=== PATIENT | male | born 1930 | race Caucasian/White ===

== ENCOUNTER 2017-07-25 07:13 | Emergency (ER) | payer OTHER ==
[~2017-07-25] VITALS: Ht 177.8 cm; Wt 77.1 kg
[~2017-07-25 07:13] MED LIST: CARBIDOPA-LEVO1 EAC6; CEFDINIR300 MG PO; CLONAZEPAM 1 MG1 M1; FLOMAX0.4 MG PO; GABAPENTIN 100100 MG PO; NABUMETONE 500500 M1; SERTRALINE HCL100 MG; SIMVASTATIN40 MG; WELLBUTRIN 75 M75 M1; WELLBUTRIN XL150 MG PO
== END 2017-07-25 08:22 | disposition home or self-care (01) ==
LOC: ER 07:13
DX: T83.098A Other mechanical complication of other urinary catheter, initial encounter (principal); F41.9 Anxiety disorder, unspecified; F32.9 Major depressive disorder, single episode, unspecified; F10.99 Alcohol use, unspecified with unspecified alcohol-induced disorder; Z98.890 Other specified postprocedural states; Z87.891 Personal history of nicotine dependence

== ENCOUNTER 2017-12-08 21:20 | Inpatient (IN) | payer OTHER ==
[~2017-12-08] VITALS: Ht 177.8 cm; Wt 71.2 kg
[2017-12-08 21:42] VITALS: BP 189/91
[2017-12-08 22:13] LABS: URINE BILIRUBIN NEGATIVE (Negative); URINE BLOOD 3+ (Negative); URINE CLARITY TURBID; URINE COLOR YELLOW; URINE GLUCOSE-RANDOM* NEGATIVE (Negative); URINE KETONES NEGATIVE (Negative); URINE PROTEIN (DIPSTICK) 3+ (Negative); URINE UROBILINOGEN 0.2 E.U./dl (0.2-1.0)
[2017-12-08 22:15] LABS: ABSOLUTE NEUTROPHILS 8.8 thou/uL (1.4-8.2); BASOPHILS 0.5 % (0.0-2.0); EOSINOPHILS 0.3 % (0.0-3.0); HEMATOCRIT 38.2 % (42.0-52.0); HEMOGLOBIN 13.2 gm/dL (14.0-18.0); LYMPHOCYTES 4.5 % (24.0-44.0); MCH 34.8 pg (26.0-34.0); MCHC 34.5 g/dL (28.0-37.0); MCV 100.9 fL (80.0-100.0); MONOCYTES 11.7 % (1.0-8.0); PLATELET COUNT 214 thou/uL (150-400); RBC 3.78 mil/uL (4.50-6.00); RDW 12.5 % (10.5-14.5); WBC 10.6 thou/uL (4.0-11.0)
[2017-12-08 22:18] LABS: URINE LEUKOCYTES-REFLEX 3+ (Negative); URINE NITRITE-REFLEX POSITIVE (Negative)
[2017-12-08 22:20] LABS: BACTERIA-REFLEX >30 Many /HPF (None Seen); CASTS None Seen /LPF (None Seen); CRYSTALS None Seen /LPF (None Seen); MUCUS 4-6 Moderate strn/LPF (None Seen); SQUAMOUS 0-3 Few /LPF (0-3); URINE RBC 3-10 Few /HPF (0-2); URINE WBC-REFLEX >25 Many /HPF (0-5)
[2017-12-08 22:25] LABS: CALCIUM 9.6 mg/dL (8.5-10.1); CREATININE 1.8 mg/dL (0.7-1.3); POTASSIUM 4.2 mmol/L (3.5-5.1)
[2017-12-08 22:29] LABS: DIRECT BILIRUBIN 0.2 mg/dL (<0.1-0.3); TOTAL BILIRUBIN 0.5 mg/dL (<0.1-1.0); TOTAL PROTEIN 7.1 g/dL (6.4-8.2)
[2017-12-09 00:37] VITALS: BP 143/60
[2017-12-09 00:53] VITALS: BP 176/76
[2017-12-09 01:18] VITALS: BP 165/72
[2017-12-09 06:11] LABS: HEMATOCRIT 37.7 % (42.0-52.0); HEMOGLOBIN 12.9 gm/dL (14.0-18.0); MCH 34.8 pg (26.0-34.0); MCHC 34.2 g/dL (28.0-37.0); MCV 101.7 fL (80.0-100.0); RBC 3.71 mil/uL (4.50-6.00); RDW 12.5 % (10.5-14.5); WBC 8.4 thou/uL (4.0-11.0)
[2017-12-09 06:42] LABS: CALCIUM 8.8 mg/dL (8.5-10.1); CREATININE 1.7 mg/dL (0.7-1.3); POTASSIUM 4.4 mmol/L (3.5-5.1)
[2017-12-09 16:00] VITALS: BP 154/74
[2017-12-09 19:14] VITALS: BP 136/49
[2017-12-10 04:04] VITALS: BP 141/61
[2017-12-10 07:27] VITALS: BP 170/78
[2017-12-10 07:56] VITALS: BP 170/78
[2017-12-10 08:47] LABS: CALCIUM 8.8 mg/dL (8.5-10.1); CREATININE 1.4 mg/dL (0.7-1.3); POTASSIUM 3.9 mmol/L (3.5-5.1)
== END 2017-12-10 10:58 | disposition home or self-care (01) | DRG 698 ==
LOC: ER 21:20 → EROBS 12-09 00:12 → 4W 12-09 00:12 → ENTRNSPT 12-10 10:08 → EDTRNSPTSTS 12-10 10:09 → 4W 12-10 10:58
PROVIDERS: Emergency Medicine; Family Medicine; Nurse Practitioner Family
DX: T83.018A Breakdown (mechanical) of other urinary catheter, initial encounter (principal); E43 Unspecified severe protein-calorie malnutrition; N12 Tubulo-interstitial nephritis, not specified as acute or chronic; N17.9 Acute kidney failure, unspecified; N13.30 Unspecified hydronephrosis; G20 Parkinson's disease; R33.9 Retention of urine, unspecified; F41.9 Anxiety disorder, unspecified; F32.9 Major depressive disorder, single episode, unspecified; G25.81 Restless legs syndrome; N40.0 Benign prostatic hyperplasia without lower urinary tract symptoms; Y83.8 Other surgical procedures as the cause of abnormal reaction of the patient, or of later complication, without mention of misadventure at the time of the procedure; Y92.89 Other specified places as the place of occurrence of the external cause; Z87.891 Personal history of nicotine dependence
CPT/HCPCS: 10045